=== PATIENT | female | born 1950 | race Caucasian/White ===

== ENCOUNTER 2019-07-04 01:09 | Day surgery (SDC) | payer MEDICARE, OTHER, SELFPAY ==
[2019-06-28 14:39] VITALS: BMI 41.8
[2019-07-04 10:41] VITALS: BP 149/78; PULSE 73; RESP 16; TEMP 36.6; O2SAT 95
[2019-07-04 10:43] VITALS: BMI 42.5
--- NOTE | 2019-07-04 10:49 | PM.IMHP ---
H&P: HPI History of Present Illness Chief complaint: Neoplasm Screening,hx esophageal ulcer Narrative: This very pleasant lady is being evaluated for EGD and colonoscopy. Impression: GERD with dysphagia. Evaluate for underlying ring or stricture. She is status post Joseluis fundoplication and diaphragmatic hernia repair. Colon cancer and polyp screening. She does have chronic constipation. Compatible with chronic idiopathic constipation. CAD/CHF/HI/atrial fibrillation. Obstructive sleep apnea. Obesity. Hypertension. Hyperlipidemia. Posttraumatic stress disorder with anxiety/depression. Peripheral arterial disease. Status post femoral stent placement. Asthmatic bronchitis. Recommendation: Will proceed with EGD and colonoscopy. History: Very pleasant lady's being for history of reflux disease. She presently has having no reflux symptoms. She is having dysphagia to solids for the last 6 months. Nausea, vomiting and hematemesis tonight. She does have chronic constipation and takes stool softener daily. Hematochezia, melena and acholic stools are denied. The patient has previously had a colonoscopy. According to her everything was unremarkable. She has also previously had an EGD. Patient does have complaints of progressive shortness of breath and dyspnea exertion. She does have chronic back pain status post without scoliosis surgery. Review of Systems Review of Systems: All systems reviewed & are unremarkable except as noted in HPI and below PMFSH Past Medical History Medical History (Updated 07/04/19 @ 11:03 by Chi Corado DO) A-fib AB (asthmatic bronchitis) Anxiety CAD (coronary artery disease) CHF (congestive heart failure) Depression GERD (gastroesophageal reflux disease) Hernia High cholesterol History of blood transfusion HTN (hypertension) Myocardial infarct Obesity RENETTA (obstructive sleep apnea) PAD (peripheral artery disease) PTSD (post-traumatic stress disorder) Surgical History Surgical History (Updated 07/04/19 @ 11:03 by Chi Corado DO) Gastric bypass status for obesity H/O colonoscopy H/O hernia repair H/O prior ablation treatment H/O: hysterectomy History of appendectomy History of back surgery History of cardiac cath History of cataract extraction History of esophagogastroduodenoscopy (EGD) History of laparotomy History of Joseluis fundoplication Hx of CABG Hx of tonsillectomy Social History Social History Smoking status: Never smoker Second hand tobacco smoke exposure: No Alcohol intake: current Substance use: never Gender identity (if verbalized by the patient): Female Meds Home Medications and Allergies Home Medications Medication Instructions Recorded Confirmed Type apixaban 5 mg tablet 5 mg PO BID 04/03/19 07/04/19 History budesonide-formoterol HFA 80 2 puff INHALATION Q12H 04/03/19 07/04/19 History mcg-4.5 mcg/actuation aerosol inhaler cholecalciferol (vitamin D3) 1,250 50,000 unit PO MONTHLY #4 cap 04/03/19 07/04/19 Rx mcg (50,000 unit) capsule clonazepam 2 mg tablet 2 mg PO DAILY #30 tablet 04/03/19 07/04/19 Rx furosemide 20 mg tablet 20 mg PO QAM 04/03/19 07/04/19 History losartan 100 mg tablet 100 mg PO DAILY 04/03/19 07/04/19 History metoprolol succinate 100 mg 100 mg PO HS 04/03/19 07/04/19 History tablet,extended release 24 hr nitroglycerin 0.4 mg sublingual 0.4 mg SUBLINGUAL Q5M PRN 04/03/19 06/28/19 History tablet rosuvastatin 20 mg tablet 20 mg PO DAILY 04/03/19 07/04/19 History trazodone 50 mg tablet 150 mg PO .at bedtime #270 tablet 04/03/19 07/04/19 Rx duloxetine 60 mg capsule,delayed 60 mg PO BID #180 cap 04/05/19 07/04/19 Rx release tramadol 50 mg tablet 50 mg PO Q8H PRN #90 tablet 05/10/19 07/04/19 Rx clonidine HCl 0.2 mg PO DAILY 07/04/19 07/04/19 History Allergies Allergy/AdvReac Type Severity Reaction Status Date / Time talbi Jorden
[2019-07-04] MEDS: LACTATED RINGERS 1,000 ML 150 ML IV CONT (11:09)
--- NOTE | 2019-07-04 11:29 | WPDANESEPPF ---
Anes - Initial Pre Proc Eval Procedure: Operation Date: 07/04/19 12:00 Proposed Procedures p Esophagogastroduodenoscopy & Screening Colonoscopy - Chi Corado DO Date/Time: 07/04/19 11:29 Surgeon: Chi Corado DO Pre Op Diagnosis: Neoplasm Screening,hx esophageal ulcer Patient Data Age: 68 Gender: F Height: 5 ft 8 in Weight: 126.8 kg Last Vital Signs Temp 97.9 F 07/04/19 10:41 Pulse 73 07/04/19 10:41 Resp 16 07/04/19 10:41 BP 149/78 H 07/04/19 10:41 Pulse Ox 95 07/04/19 10:41 Allergies Allergy/AdvReac Type Severity Reaction Status Date / Time meperidine Allergy Mild Unknown Verified 07/04/19 10:21 clarithromycin Allergy Unknown n & v Verified 07/04/19 10:21 fentanyl Allergy Unknown N & V Verified 07/04/19 10:21 Penicillins Allergy Unknown rash Verified 07/04/19 10:21 Home Medications Medication Instructions Recorded Confirmed Type apixaban 5 mg tablet 5 mg PO BID 04/03/19 07/04/19 History budesonide-formoterol HFA 80 2 puff INHALATION Q12H 04/03/19 07/04/19 History mcg-4.5 mcg/actuation aerosol inhaler cholecalciferol (vitamin D3) 1,250 50,000 unit PO MONTHLY #4 cap 04/03/19 07/04/19 Rx mcg (50,000 unit) capsule clonazepam 2 mg tablet 2 mg PO DAILY #30 tablet 04/03/19 07/04/19 Rx furosemide 20 mg tablet 20 mg PO QAM 04/03/19 07/04/19 History losartan 100 mg tablet 100 mg PO DAILY 04/03/19 07/04/19 History metoprolol succinate 100 mg 100 mg PO HS 04/03/19 07/04/19 History tablet,extended release 24 hr nitroglycerin 0.4 mg sublingual 0.4 mg SUBLINGUAL Q5M PRN 04/03/19 06/28/19 History tablet rosuvastatin 20 mg tablet 20 mg PO DAILY 04/03/19 07/04/19 History trazodone 50 mg tablet 150 mg PO .at bedtime #270 tablet 04/03/19 07/04/19 Rx duloxetine 60 mg capsule,delayed 60 mg PO BID #180 cap 04/05/19 07/04/19 Rx release tramadol 50 mg tablet 50 mg PO Q8H PRN #90 tablet 05/10/19 07/04/19 Rx clonidine HCl 0.2 mg PO DAILY 07/04/19 07/04/19 History Patient hx anesthesia problems: none Family hx anesthesia problems: none [facility] Past Medical History Medical History (Updated 07/04/19 @ 11:03 by Chi Corado DO) A-fib AB (asthmatic bronchitis) Anxiety CAD (coronary artery disease) CHF (congestive heart failure) Depression GERD (gastroesophageal reflux disease) Hernia High cholesterol History of blood transfusion HTN (hypertension) Myocardial infarct Obesity RENETTA (obstructive sleep apnea) PAD (peripheral artery disease) PTSD (post-traumatic stress disorder) Surgical History Surgical History (Updated 07/04/19 @ 11:03 by Chi Corado DO) Gastric bypass status for obesity H/O colonoscopy H/O hernia repair H/O prior ablation treatment H/O: hysterectomy History of appendectomy History of back surgery History of cardiac cath History of cataract extraction History of esophagogastroduodenoscopy (EGD) History of laparotomy History of Joseluis fundoplication Hx of CABG Hx of tonsillectomy Social History Social History Smoking status: Never smoker Second hand tobacco smoke exposure: No Alcohol intake: current Substance use: never Gender identity (if verbalized by the patient): Female Anes - Eval Final PreProcedure Day of Procedure 07/04/19 11:29 Patient weight: morbidly obese Heart: regular rate and rhythm Lungs: clear to auscultation Airway: Mallampati scale class III Neurological: alert and oriented Last oral intake: >/= 8 hours ASA classification: IV Emergent: no Anesthesia type and monitoring: general GIVS and standard monitoring Informed Consent: The patient's anesthetic plan and its attendant risks and benefits were discussed with the patient/family/POA. Questions were solicited and answers provided to the satisfaction of the patient/family/POA.
[2019-07-04 12:23] VITALS: BP 114/55; PULSE 58; RESP 13; O2SAT 93
[2019-07-04 12:33] VITALS: BP 97/46; PULSE 61; RESP 13; O2SAT 93
[2019-07-04 12:43] VITALS: BP 125/65; PULSE 67; RESP 13; O2SAT 94
== END 2019-07-04 13:19 | disposition home or self-care (01) ==
PROVIDERS: PCP Internal Medicine; Visit Provider Internal Medicine Gastroenterology
PROC: 0DJ08ZZ Inspection of Upper Intestinal Tract, Via Natural or Artificial Opening Endoscopic (ICD-10-PCS; CPT 43235; principal; 2019-07-04 12:00)
DX: Z12.11 Encounter for screening for malignant neoplasm of colon (principal); D12.2 Benign neoplasm of ascending colon; D12.3 Benign neoplasm of transverse colon; K57.30 Diverticulosis of large intestine without perforation or abscess without bleeding; K59.09 Other constipation; K21.0 Gastro-esophageal reflux disease with esophagitis; Z98.84 Bariatric surgery status; I48.91 Unspecified atrial fibrillation; I11.0 Hypertensive heart disease with heart failure; I50.9 Heart failure, unspecified; I25.10 Atherosclerotic heart disease of native coronary artery without angina pectoris; I25.2 Old myocardial infarction; G47.33 Obstructive sleep apnea (adult) (pediatric); E78.00 Pure hypercholesterolemia, unspecified; I73.9 Peripheral vascular disease, unspecified; J45.909 Unspecified asthma, uncomplicated; F41.8 Other specified anxiety disorders; F43.10 Post-traumatic stress disorder, unspecified; E66.01 Morbid (severe) obesity due to excess calories; Z68.41 Body mass index [BMI] 40.0-44.9, adult; Z79.01 Long term (current) use of anticoagulants; Z95.1 Presence of aortocoronary bypass graft; Z95.820 Peripheral vascular angioplasty status with implants and grafts
CPT/HCPCS: 45385; 43239; 43450; 87081; 88305; J2001; J2704; J7120

== ENCOUNTER 2019-11-02 09:42 | Outpatient (CLI) | payer MEDICARE, OTHER, SELFPAY ==
--- NOTE | ~2019-11-02 | CT_ITS ---
EXAMINATION: CT chest wo con DATE: 11/02/2019 10:17 INDICATION: Mitral valve insufficiency TECHNIQUE: Computed tomography (CT) of the chest was performed without intravenous contrast. The dose -length product was 578.65 mGy-cm. Automated exposure control and iterative reconstruction technique were employed. COMPARISON: CT dated 10/02/2017 FINDINGS: No significant pleural or pericardial effusion. There is atherosclerosis of the aorta and c oronary arteries. Cardiomegaly. 0Nonenlarged mediastinal lymph nodes, likely reactive. Calcified gran uloma right middle lobe. There is chronic lingular and bilateral lower lobe atelectasis. Stable 2-3 m m subpleural nodules right middle lobe. Stable 3 mm right upper lobe nodule, image 34. Stable miliary nodules in both lungs measuring 2 mm or less. These are best seen on the right coronal reconstructio n images. There is dextroscoliosis of the thoracic spine. Status post median sternotomy for CABG. Mil d-moderate thoracic spondylosis. IMPRESSION: 1. Stable miliary bilateral pulmonary nodules measuring 3 mm or less, most likely infectious/inflamma tory. Follow-up CT chest in 12 months recommended. 2: Chronic lingular and bilateral lower lobe atelectasis/scarring. 3: Cardiomegaly. Reviewed, dictated and finalized at location A. IMPRESSION: 1. Stable miliary bilateral pulmonary nodules measuring 3 mm or less, most like ly infectious/inflammatory. Follow-up CT chest in 12 months recommended. 2: Chronic lingular and bilateral lower lobe atelectasis/scarring. 3: Cardiomegaly.
== END 2019-11-02 09:43 | disposition home or self-care (01) ==
PROVIDERS: PCP Internal Medicine
DX: I34.0 Nonrheumatic mitral (valve) insufficiency (principal); I51.7 Cardiomegaly; R91.8 Other nonspecific abnormal finding of lung field
CPT/HCPCS: 71250

== ENCOUNTER 2019-11-21 07:14 | Outpatient (CLI) | payer MEDICARE, OTHER, SELFPAY ==
--- NOTE | ~2019-11-21 | CT_ITS ---
EXAMINATION: CTA chest abdomen pelvis DATE: 11/21/2019 08:52 INDICATION: Calcification of the aorta, shortness of breath TECHNIQUE: Computed tomographic angiography (CTA) of the chest, abdomen, and pelvis was performed wit hout and with 100 mL Omnipque-350 intravenous contrast. Maximum intensity projection 3D-reconstructio ns of the aorta and other arteries were constructed by the technologist on a separate workstation. Th e dose-length product (DLP) was 1886.62 mGy-cm. Automated exposure control and iterative reconstructi on technique were employed. COMPARISON: None. FINDINGS: CHEST CTA: There is no aneurysm or dissection of the thoracic aorta. Minimal calcified aortic atherosclerosis is present. There is calcified coronary artery atherosclerosis and changes of coronary artery bypass gr afting. There are innumerable small nodules with a random distribution in the lungs which measure 1 t o 2 mm. There is no pleural effusion or pneumothorax. Dependent atelectasis is noted. Calcified pulmo nary nodules are consistent with old granulomatous disease. No pathologically enlarged thoracic lymph nodes are identified. Cardiomegaly is noted. There are changes of coronary artery bypass grafting. T here is mild thoracic spondylosis and ankylosis of the spinous processes throughout the thoracic and lumbar spine. ABDOMEN AND PELVIS CTA: There is no aneurysm or dissection of the abdominal aorta. The celiac axis, superior mesenteric arter y, and inferior mesenteric artery are normal at their origins. There is atherosclerosis and mild sten osis of the proximal superior mesenteric artery. There are two right and one left renal arteries. The re is mild atherosclerosis of the pelvic arterial vasculature without hemodynamically significant valery nosis. The gallbladder is surgically absent. The liver is diffusely low in attenuation when compared with the spleen, consistent with hepatic steatosis. The spleen, pancreas, adrenal glands, and kidneys are normal. No pathologically enlarged abdominal or pelvic lymph nodes are identified. There is no f ree intraperitoneal gas or evidence of bowel obstruction. There is lumbar levoscoliosis. There is a t iny focus of gas in the urinary bladder unclear origin. IMPRESSION: 1. No aneurysm or dissection of the thoracic or abdominal aorta. 2. Innumerable 1 to 2 mm nodules in the lungs with a random distribution, likely infectious or inflam matory. If the patient has no risk factors for malignancy, no further follow up is required. If ther e are risk factors for malignancy (i.e., history of smoking, asbestos or radiation exposure), conside r followup CT in 12 months. 3. Cardiomegaly. 4. Tiny focus of gas in the urinary bladder of unclear origin. Correlate for urinary tract infection. Reviewed, dictated and finalized at location B. IMPRESSION: 1. No aneurysm or dissection of the thoracic or abdominal aorta. 2. Innumerable 1 to 2 mm nodules in the lungs with a random distribution, likel y infectious or inflammatory. If the patient has no risk factors for malignancy , no further follow up is required. If there are risk factors for malignancy ( i.e., history of smoking, asbestos or radiation exposure), consider followup CT in 12 months. 3. Cardiomegaly. 4. Tiny focus of gas in the urinary bladder of unclear origin. Correlate for ur inary tract infection.
[2019-11-21 08:46] LABS: Estimated Glomerular Filt Rate 55
--- NOTE | 2019-11-25 23:53 | WPDPFTINT ---
PFT Interpretation PFT Interpretation: DOS: 11/21/2019 REQUESTING: Dr. Jarek Ortiz] REASON FOR TESTING: shortness of breath PULMONARY FUNCTION TESTS Results are reliable and reproducible. Spirometry: FEV1 58% severely decreased. FVC 59% severely decreased. Normal FEV1%. No bronchodilator was given. Lung volumes: TLC 63% consistent with moderate restriction. increased airway resistance 204%. ERV extremely low 9% and may be due to obesity. Diffusion: DLCO 50%, moderately decreased. Flow volume loop: Restrictive pattern. IMPRESSION: Moderate restriction, no airflow obstruction, no bronchodilator was given, and moderate diffusion impairment. Low DLCO with restriction may be seen in congestive heart failure, asbestos, sarcoidosis, and other conditions. Obesity causes an increase in DLCO. Clinical correlation is recommended. Shruti Underwood MD
== END 2019-11-21 07:15 | disposition home or self-care (01) ==
PROVIDERS: PCP Internal Medicine; Visit Provider Thoracic Surgery (Cardiothoracic Vascular Surgery)
DX: R06.02 Shortness of breath (principal); I51.7 Cardiomegaly; R91.1 Solitary pulmonary nodule
CPT/HCPCS: 36415; 71275; 74174; 94375; 94726; 94729; Q9967

== ENCOUNTER 2019-12-09 17:30 | Emergency (ER) | payer MEDICARE, OTHER, SELFPAY ==
--- NOTE | 2019-12-09 17:39 | ED.GENADULT ---
HPI - General Adult General Chief complaint: Ear Stated complaint: Ear injury/Bleeding ear Time Seen by Provider: 12/09/19 17:59 Source: patient Mode of arrival: ambulatory Limitations: no limitations History of Present Illness HPI narrative: 69-year-old female patient presents to the [facility] with complaints of bleeding coming from the left ear that started about 1045 this morning. Patient states that she is on blood thinners. Patient states she did put a Q-tip in her ear and down a clot which noticed that the bleeding had increased. Patient states that about an hour ago another clot came out after 1 of her friends checked out the ear and continued to bleed. Patient states that for the last couple of days she felt like her ear is been uncomfortable has felt like she has been in a tunnel. Patient states that she blew her nose yesterday and felt a pop to the left ear. Patient states she went to bed without any complaints of woke up with no bleeding or any other complaints this morning. Patient states she has had allergies recently but denies taking any antihistamines. Related Data Home Medications Medication Instructions Recorded Confirmed apixaban 5 mg tablet 5 mg PO BID 04/03/19 08/03/19 furosemide 20 mg tablet 20 mg PO QAM 04/03/19 08/03/19 losartan 100 mg tablet 100 mg PO DAILY 04/03/19 08/03/19 metoprolol succinate 100 mg 100 mg PO HS 04/03/19 08/03/19 tablet,extended release 24 hr nitroglycerin 0.4 mg sublingual 0.4 mg SUBLINGUAL Q5M PRN 04/03/19 08/03/19 tablet rosuvastatin 20 mg tablet 20 mg PO DAILY 04/03/19 08/03/19 clonidine HCl 0.2 mg tablet 0.2 mg PO TID tablet 08/03/19 08/03/19 metoprolol succinate 100 mg 100 mg PO DAILY 08/03/19 tablet,extended release 24 hr Allergies Allergy/AdvReac Type Severity Reaction Status Date / Time meperidine Allergy Mild Unknown Verified 08/03/19 11:10 clarithromycin Allergy Unknown n & v Verified 08/03/19 11:10 Penicillins Allergy Unknown rash Verified 08/03/19 11:10 Review of Systems Review of Systems: Narrative: CONSTITUTIONAL: Denies fever, chills, or sweats. EYES: Denies visual changes, redness, or discharge. ENT: Denies rhinorrhea, congestion, sore throat, positive bleeding from left ear since this morning CARDIOVASCULAR: Denies chest pain, palpitations, or edema. RESPIRATORY: Denies cough or dyspnea. GASTROINTESTINAL: Denies abdominal pain, nausea, vomiting, or diarrhea. GENITOURINARY: Denies dysuria or hematuria. SKIN: Denies rash or itching. MUSCULOSKELETAL: Denies back pain, joint pain, or myalgia. NEUROLOGIC: Denies headache, numbness, or weakness. PSYCHIATRIC: Denies anxiety or depression. [facility] Past Medical History Medical History A-fib AB (asthmatic bronchitis) Anxiety CAD (coronary artery disease) CHF (congestive heart failure) Depression GERD (gastroesophageal reflux disease) Hernia High cholesterol History of blood transfusion HTN (hypertension) Myocardial infarct Obesity RENETTA (obstructive sleep apnea) PAD (peripheral artery disease) Postmenopausal PTSD (post-traumatic stress disorder) Surgical History Surgical History Gastric bypass status for obesity H/O colonoscopy H/O hernia repair H/O prior ablation treatment H/O: hysterectomy History of appendectomy History of back surgery History of cardiac cath History of cataract extraction History of esophagogastroduodenoscopy (EGD) History of laparotomy History of Joseluis fundoplication Hx of CABG Hx of tonsillectomy Family History Family History Mother Hypertension Family history of coronary artery disease Patient's mother is Father Family history of heart disease in male family member before age 55, Onset Age: 52 Other Cerebrovascular accident Diabetes mellitus Family history of alcoholism Fa
[2019-12-09 17:42] VITALS: BP 139/86; PULSE 74; RESP 16; TEMP 36.4; O2SAT 100
== END 2019-12-09 18:00 | disposition home or self-care (01) ==
PROVIDERS: Emergency Provider Nurse Practitioner Family; PCP Internal Medicine
DX: H65.193 Other acute nonsuppurative otitis media, bilateral (principal); S00.412A Abrasion of left ear, initial encounter; X58.XXXA Exposure to other specified factors, initial encounter; I48.91 Unspecified atrial fibrillation; I25.10 Atherosclerotic heart disease of native coronary artery without angina pectoris; I11.0 Hypertensive heart disease with heart failure; I50.9 Heart failure, unspecified; F32.9 Major depressive disorder, single episode, unspecified; F41.9 Anxiety disorder, unspecified; K21.9 Gastro-esophageal reflux disease without esophagitis; E78.00 Pure hypercholesterolemia, unspecified; I25.2 Old myocardial infarction; G47.33 Obstructive sleep apnea (adult) (pediatric); I73.9 Peripheral vascular disease, unspecified; F43.10 Post-traumatic stress disorder, unspecified; E66.9 Obesity, unspecified; Z68.38 Body mass index [BMI] 38.0-38.9, adult; Z98.84 Bariatric surgery status
CPT/HCPCS: 99213; G0463